=== PATIENT | female | born 1950 | race Hispanic/Latino ===

== ENCOUNTER 2019-02-18 14:35 | Emergency (ER) | payer MEDICARE, OTHER ==
[~2019-02-18] VITALS: Ht 147.3 cm; Wt 84.4 kg
[~2019-02-18 14:35] MED LIST: ACTOS PO; AMLODIPINE PO; ASPIR 8181 MG PO; ASPIRIN325 M2 PO; ETODOLAC400 MG PO; JANUVIA PO; LISINOPRIL-HCT1 EAC3 PO; NATEGLINIDE PO; NATEGLINIDE120 MG PO; PREVACID30 M2 PO; Z.0.ACTOS15 MG PO; Z.0.JANUVIA25 MG PO; Z.1.LANSOPRAZOLE30 M PO; Z.1.METFORMIN HCL100 PO; Z.2.LISINOPRIL-HCT1 PO
--- OUTSIDE RECORDS SUMMARY | 2019-02-18 14:39 | XMS REPORT | Summary of Care ---
Author Author [facility] Address Unknown Phone Unavailable Encounter [email or web address](FIN) [id number] Date(s): 02/17/18 - 03/18/18 Formerly [facility] Encounter Diagnosis Pain in right shoulder (Final) - Muscle weakness (generalized) (Final) - Stiffness of unspecified joint, not elsewhere classified (Final) - Discharge Disposition: Home or Self Care Attending Physician: Luis Daniel Bautista MD Vital Signs No data available for this section Problem List No data available for this section Allergies, Adverse Reactions, Alerts Substance Reaction Severity Status codeine Demerol Hydrochloride Carpuject Active Vicodin Active Medications No data available for this section Results No data available for this section Immunizations No data available for this section Procedures No data available for this section Social History No data available for this section Assessment and Plan No data available for this section
--- OUTSIDE RECORDS SUMMARY | 2019-02-18 14:39 | XMS REPORT | Summary of Care ---
Author Organization Unknown Address Unknown Phone Unavailable Encounter HQ [email or web address]([facility]) [id number] Date(s): 03/16/14 - 03/16/14 [facility] Outpatient Imaging - [address] [address]- [place] Discharge Disposition: Home Physician Attending: Anderson Valle MD Reason for Visit 836.0 - TEAR MED MENISC Problem List No data available for this section Allergies, Adverse Reactions, Alerts Substance Reaction Severity Status codeine Demerol Hydrochloride Carpuject Active Vicodin Active Medications No data available for this section Medications Administered During Your Visit No data available for this section Immunizations No data available for this section
--- OUTSIDE RECORDS SUMMARY | 2019-02-18 14:39 | XMS REPORT | Summary of Care ---
Author Author [facility] Address Unknown Phone Unavailable Encounter [email or web address]([facility]) [id number] Date(s): 02/17/18 - 03/18/18 [facility] Discharge Disposition: Home or Self Care Attending [...]
--- OUTSIDE RECORDS SUMMARY | 2019-02-18 14:39 | XMS REPORT | CCD ---
Author Author Auto Generated Organization [facility] Outpatient [facility] Address Unknown Phone Unavailable Care Team Providers Care Stock Shaper Name Role Phone Aleks Rodriguez CP Allergies, Adverse Reactions, Alerts Substance Reaction Status codeine Demerol Hydrochloride Carpuject Active Vicodin Active
--- OUTSIDE RECORDS SUMMARY | 2019-02-18 14:39 | XMS REPORT | Summary of Care ---
Author Author [facility] Address Unknown Phone Unavailable Encounter HQ [email or web address]([facility]) [id number] Date(s): 03/20/18 - 04/18/18 Formerly [facility] Discharge Disposition: Home or Self Care Attending [...]
--- OUTSIDE RECORDS SUMMARY | 2019-02-18 14:39 | XMS REPORT | Summary of Care ---
Author Author [facility] - [place] Organization [facility] [place] Address Unknown Phone Unavailable Encounter HQ Encntr_alias(FIN) [id number] Date(s): 07/07/16 - 07/07/16 [facility] Outpatient [facility] - [place] [address] [place] [address]- [phone] Discharge Disposition: Home or Self Care Attending Physician: Mendoza Rodriguez DO Vital Signs No data available for this [...]
--- OUTSIDE RECORDS SUMMARY | 2019-02-18 14:39 | XMS REPORT | Summary of Care ---
Author Author PETER BILLY M.D. Organization Unknown Address [facility] Phone Unavailable Care Team Providers Care Practice Office Associate Name Role Phone PETER BILLY M.D. Unavailable Unavailable Unavailable Unavailable Functional Status Name Dates Details Functional status health issues are not documented Status: Name Dates Details Cognitive status health issues are not documented Status: Problems Name Dates Details Right shoulder pain (719.41, M25.511) Status: Active Degenerative cervical spinal stenosis (723.0, M48.02) Status: Active Traumatic rotator cuff tear, right, initial encounter (840.4, S46.011A) Status: Active Medications Name Dates Details Meloxicam 7.5 MG Oral Tablet TAKE 1 TABLET DAILY WITH FOOD. Quantity: 30 MARIAJOSE M.D., PETER * Start : 22-Oct-2017 Active Diclofenac Sodium 1 % Transdermal Gel APPLY TO LOWER EXTREMITIES, 4 GM OF GEL TO AFFECTED AREA 4 TIMES DAILY. DO NOT APPLY MORE THAN 16 GM DAILY TO ANY ONE AFFECTED JOINT. * Quantity: 1 Refills: 2 MARIAJOSE M.D., PETER * Start : 22-Oct-2017 Active 100 GM Tube TraMADol HCl - 50 MG Oral Tablet TAKE 1 TABLET EVERY 4 TO 6 HOURS NEEDED FOR PAIN. * Quantity: 50 Refills: 2 MARIAJOSE M.D., PETER * Start : 17-Dec-2017 Active Promethazine HCl - 12.5 MG Oral Tablet TAKE 1 TABLET EVERY 4 TO 6 HOURS NEEDED FOR NAUSEA. * Quantity: 30 Refills: 0 MARIAJOSE M.D., PETER * Start : 17-Dec-2017 Active Cyclobenzaprine HCl - 10 MG Oral Tablet TAKE 1 TABLET 3 TIMES DAILY PRN muscle spasms * Quantity: 30 Refills: 0 MARIAJOSE M.D., PETER * Start : 17-Dec-2017 Active Allergies and Adverse Reactions Name Dates Details Allergy history not documented Status: Procedures Procedure Dates Details Procedures not documented Immunization Name Dates Details Immunizations not documented Social History Name Dates Details Unknown if ever smoked Vital Signs Date Test Result Details No Known Vitals to report Results Date Description Value Details Results not documented Plan of Care Name Dates Details Planned Observations Planned Goals not documented Planned Encounters Appointment; PETER BILLY M.D. On: 29-Apr-2018 13:45 Interventions Provided Plan* Patient Education/Instructions: * Patient Education Provided * Reassurance * Patient/Parent to call or return with any abnormal changes * NSAIDS and ICE application for continued pain and swelling. * Orders: * Physical Therapy * Medications: * Medications (prescribed or recommended at this visit): * - Opioid analgesics. * Follow Up: * Return to the clinic in 2 months or as needed. * X-rays to be completed at next visit: No follow up Xrays required Instructions Name Dates Details Instructions not documented Encounters Appointment; PETER BILLY M.D. Encounter Diagnosis: Problem not documented On: 22-Oct-2017 13:00 Appointment; PETER BILLY M.D. Encounter Diagnosis: Problem not documented On: 03-Dec-2017 11:15 Appointment; PETER BILLY M.D. Encounter Diagnosis: Problem not documented On: 18-Dec-2017 8:00 Appointment; PETER BILLY M.D. Encounter Diagnosis: Problem not documented On: 26-Dec-2017 10:45 Appointment; PETER BILLY M.D. Encounter Diagnosis: Problem not documented On: 26-Dec-2017 13:00 Appointment; PETER BILLY M.D. Encounter Diagnosis: Problem not documented On: 02-Jan-2018 10:15 Appointment; PETER BILLY M.D. Encounter Diagnosis: Problem not documented On: 30-Jan-2018 10:15 Appointment; PETER BILLY M.D. Encounter Diagnosis: Problem not documented On: 13-Mar-2018 10:15 Appointment; PETER BILLY M.D. Encounter Diagnosis: Problem not documented On: 18-Mar-2018 15:15
--- OUTSIDE RECORDS SUMMARY | 2019-02-18 14:39 | XMS REPORT | Continuity of Care Document ---
Author Author [facility] Interface Address Unknown Phone Unavailable Problems Problem Status Onset Date Classification Date Reported Comments Source RT SHOULDER RTC Active 02/12/2018 [facility] [place] Strain of other muscles, fascia and tendons at shoulder and upper arm level, right arm, initial encounter 12/05/2017 03/04/2018 [facility] [place] RT SHOULDER Active 11/30/2017 [facility] [place] Z12.39 - ENCOUNTER FOR OTH SCREENING FO Active 11/15/2017 [facility] [place] M25.511 - PAIN IN RIGHT SHOULDER Active 11/01/2017 [facility] [place] Z12.31 - ENCNTR SCREEN MAMMOGRAM FOR MA Active 06/12/2017 [facility] [place] V76.12 - SCREEN MAMMOGRA Active 03/16/2014 [facility] [place] Spinal stenosis, cervical region 03/04/2018 [facility] [place] Final: Encounter for screening mammogram for malignant neoplasm of breast 11/18/2017 [facility] [place] Pain in right shoulder 03/27/2018 [facility] [place] Muscle weakness 03/27/2018 [facility] [place] Stiffness of unspecified joint, not elsewhere classified 03/27/2018 [facility] [place] Medications Medication Details Route Status Patient Instructions Ordering Provider Order Date Source Allergies, Adverse Reactions, Alerts Substance Category Reaction Severity Reaction type Status Date Reported Comments Source codeine Assertion Demerol Hydrochloride Carpuject Drug allergy Active [facility] [place] Vicodin Assertion Drug allergy Active [facility] [place] Immunizations Immunization Date Given Site Status Last Updated Comments Source Results Order Name Results Value Reference Range Date Interpretation Comments Source Breast Mammo Scrn MYNOR incl CAD MA Breast Mammo Scrn MYNOR incl CAD MA BILATERAL DIGITAL SCREENING MAMMOGRAM WITH CAD: 11/17/2018 CLINICAL: Routine/Screening. Current study was evaluated with a Computer Aided Detection (CAD) system. COMPARISON:Comparison is made to exams dated: 11/15/2017 mammogram, 07/07/2016 mammogram, 11/12/2014 mammogram, and 04/30/2013 mammogram - [facility]. TECHNIQUE: Mammographic views were obtained using digital acquisition. Current study was also evaluated with a Computer Aided Detection (CAD) system. FINDINGS: The tissue of both breasts is almost entirely fat. No significant masses, calcifications, or other findings are seen in either breast. There has been no significant interval change. IMPRESSION: NEGATIVE RECOMMENDATION:There is no mammographic evidence of malignancy. A 1 year screening mammogram is recommended.(11/18/2019) This exam was interpreted at [id number] at [facility] [place]. Professional services are provided by the [facility]. Elva Jurado M.D. sm/penrad:11/19/2018 13:27:45 Skiing Instructor(s): RT Rupinder(R)(M), [facility] letter sent: BI-RADS 1/2 Mammogram BI-RADS: 1 Negative 11/17/2018 - - Read by: Elva Jurado MD Dictated Date/time: 11/19/18 13:27 Electronically Signed by: Elva Jurado MD 11/19/18 13:27 FINAL REPORT [facility] Bone Density DXA [employer] MA Bone Density DXA [employer] MA BONE DENSITY ASSESSMENT: 04/16/2018 CLINICAL DATA: Post menopausal. Age-Related Osteoporosis Without Current Pathological Fracture/M81.0 RISK FACTORS: History of previous fracture. FINDINGS: Bone density evaluation was performed 04/16/2018 on the left distal radius using a Hologic unit. The BMD average for the exam is 0.578 g/cm2. The T-score is - 1.90 and the Z-score is 0.10. This matches the World Health Organization's criteria for osteopenia and places the patient at a medium risk for fracture. An additional bone density evaluation was performed 04/16/2018 on the right femur neck using a Hologic unit. The BMD average for the exam is 0.688 g/cm2. The T-score is -1.50 and the Z-score is 0.10. This matches the World Health Organization's criteria for osteopenia and places the patient at a medium risk for fracture. An additional bone density evaluation was performed 04/16/2018 on the left femur neck using a Hologic unit. The BMD average for the exam is 0.696 g/cm2. The T- score is -1.40 and the Z-score is 0.20. This matches the World Health Organization's criteria for osteopenia and places the patient at a medium risk for fracture. An additional bone density evaluation was performed 04/16/2018 on the right hip using a Hologic unit. The BMD average for the exam is 0.794 g/cm2. The T-score is -1.20 and the Z-score is 0.20. This matches the World Health Organization's criteria for osteopenia and places the patient at a medium risk for fracture. An additional bone density evaluation was performed 04/16/2018 on the left hip using a Hologic unit. The BMD average for the exam is 0.833 g/cm2. The T-score is -0.90 and the Z-score is 0.50. This matches the World Health Organization's criteria for normal bone density and places the patient within normal limits of fracture risk. IMPRESSION: OSTEOPENIA Patient is at medium risk for fracture. This exam was interpreted at [id number] for BL[facility], 15. Kirk Davis M.D. rsl/latosha:04/17/2018 08:34:36 Skiing Instructor(s): Zena PEREZ)(Brittany), [facility] 04/16/2018 - - Read by: Kirk Davis MD Dictated Date/time: 04/17/18 08:34 Electronically Signed by: Kirk Davis MD 04/17/18 08:34 FINAL REPORT [facility] Spine cervical wo contrast MRI Spine cervical wo contrast MRI EXAM: Spine cervical wo contrast MRI DATE: 11/26/2017 12:11 PM [employer] . ORDERING PHYSICIAN: Luis Daniel Bautista MD CLINICAL INDICATION: M25.511 Pain in right shoulder - M25.511 Pain in right shoulder; TECHNIQUE: Multiplanar, multisequence MRI cervical spine without IV contrast COMPARISON: Unavailable FINDINGS: VISUALIZED INTRACRANIAL CONTENTS: Unremarkable. CRANIOCERVICAL JUNCTION: Tonsils normal in position CORD: No definite cord signal abnormality. No definite dural based lesion. VERTEBRAE: The vertebrae are normal in height. The lordosis is straightened. No focal suspicious bone marrow signal abnormality. PARASPINAL SOFT TISSUES: No edema or masses DISC LEVELS, SPINAL CANAL, NEURAL FORAMINA: The cervical pedicles are short. Craniocervical junction: No stenosis C1-C2: No subluxation, ligamentous pannus formation, or stenosis C2-C3: Intervertebral disc height and signal are maintained. The left facets are enlarged. Central canal measures 11 mm. Neural foramina are patent. C3-C4: Intervertebral disc height and signal are maintained. Posterior elements are normal. There is no stenosis. C4-C5: Intervertebral disc height is dehydrated without height loss or annular bulge. Posterior elements are normal. There is no stenosis. C5-C6: Intervertebral disc is dehydrated without height loss or annular bulge. Posterior elements are normal. There is no stenosis. C6-C7: Loss in disc height and signal with circumferential disc osteophyte complex. There is mild facet hypertrophy. Central canal measures 8 mm with flattening ventral cord contour. There is mild narrowing of the neural foramina. C7-T1: Intervertebral disc height and signal are maintained. Posterior elements are normal. There is no stenosis. IMPRESSION: 1. Mild C6-C7 central canal stenosis and ventral cord flattening without myelopathy. There is mild narrowing of the neural foramina. 2. Please see additional comments above 11/26/2017 - - Read by: Alok Ramirez MD Dictated Date/time: 11/26/17 13:47 Electronically Signed by: Alok Ramirez MD 11/26/17 14:06 FINAL REPORT [facility] Inj Arthrogram Shoulder Unilat DX Inj Arthrogram Shoulder Unilat DX PATIENT NAME: KARINA MYERS : 1950; Age: 67 years y/o Female MR: [id number] STUDY: Inj Arthrogram Shoulder right DX 11/26/2017 11:40 AM [employer] ORDERING PHYSICIAN: Luis Daniel Bautista MD CLINICAL INDICATION: - right shoulder pain; TECHNIQUE: Consent: A written, informed consent was obtained from the patient prior to the procedure."Time Out" performed immediately prior to starting the procedure. Patient's first and last name, procedure to be performed, and location of procedure site, including laterality were reviewed. Procedure site was marked prior to "Time Out". All members of the invasive team concurred with the information before the start of the procedure. The skin was prepped and draped in the usual fashion under aseptic precautions. Dilute 1% lidocaine was used for local anesthesia. Under fluoroscopic guidance a 22 gauge long spinal needle was used to access the shoulder joint. Approximately 10 mL of a mixture of dilute gadolinium with iodinated contrast was injected into the glenohumeral joint under direct visualization. A normal shoulder joint was outlined. The patient was transferred to the MRI suite. 7 seconds of total fluoroscopy time was utilized. Images obtained: No exposures, one screen capture No immediate complications. IMPRESSION: Technically successful right shoulder arthrogram. 11/26/2017 - - Read by: Alok Ramirez MD Dictated Date/time: 11/26/17 16:31 Electronically Signed by: Alok Ramirez MD 11/26/17 16:32 FINAL REPORT [facility] Shoulder w contrast MRI Shoulder w contrast MRI EXAMINATION: MR right shoulder with contrast HISTORY: M25.511 Pain in right shoulder - M25.511 Pain in right shoulder; AGE: 67 years GENDER: Female COMPARISON: Right shoulder arthrogram 11/26/2017 TECHNIQUE: Multiplanar, multisequence magnetic resonance imaging of the right shoulder is performed with a local coil following the intra-articular administration of contrast which is dictated separately. Transverse, oblique coronal, and oblique sagittal images are obtained. FINDINGS: Biceps: The long head of the biceps tendon demonstrates mild interarticular tendinosis.. There is no significant tenosynovitis of the long head of the biceps tendon. Labrum: There is no evidence of labral pathology. No paralabral cyst formation. Rotator cuff tendons: There is a full-thickness 12 mm tear of the posterior footplate of the supraspinatus tendon with underlying severe tendinosis. There is underlying moderate grade, 50% thickness undersurface tearing of the critical zone of the supraspinatus tendon. No evidence of myotendinous junction retraction or fatty atrophy of the supraspinatus muscle. Mild tendinosis of the anterior infraspinatus tendon without tear. The subscapularis and teres minor tendons are intact and unremarkable. Muscles: There is normal signal intensity and muscle bulk of the rotator cuff musculature. Acromio-osseous outlet: There is a type 2 acromion without a subacromial spur. The coracoacromial and coracoclavicular ligaments are intact. Mild osteoarthrosis of the acromioclavicular joint. Bone: There are no acute fractures. There are no suspicious bone marrow replacing lesions. Cartilage: There is no focal glenohumeral chondral defect. Soft tissue: There is free extension of intra-articular contrast into the subacromial-subdeltoid bursa. The glenohumeral capsule is intact. The inferior glenohumeral ligament is unremarkable..The axilla and visualized portions of the hemithorax are unremarkable. IMPRESSION: 1. 12 mm full-thickness tear of the posterior footplate of the supraspinatus tendon. There is concomitant underlying moderate grade, 50% thickness, undersurface tearing of the critical zone of the entirety of the supraspinatus tendon. No myotendinous tension retraction or atrophy of the supraspinatus muscle. 2. Mild tendinosis of the anterior infraspinatus tendon without tear. 3. Mild interarticular tendinosis of the long head of the biceps tendon without tear. 11/26/2017 - - Read by: Gregory Toussaint MD Dictated Date/time: 11/26/17 14:00 Electronically Signed by: Gregory Toussaint MD 11/26/17 14:23 FINAL REPORT [facility] Breast Mammo Scrn MYNOR incl CAD PR Breast Mammo Scrn MYNOR incl CAD PR BILATERAL DIGITAL SCREENING MAMMOGRAM WITH CAD: 11/15/2017 CLINICAL: Routine/Screening. Current study was evaluated with a Computer Aided Detection (CAD) system. COMPARISON:Comparison is made to exams dated: 07/07/2016 mammogram, 11/12/2014 mammogram, and 04/30/2013 mammogram - [facility]. TECHNIQUE: Mammographic views were obtained using digital acquisition. Current study was also evaluated with a Computer Aided Detection (CAD) system. FINDINGS: The tissue of both breasts is almost entirely fat. No significant masses, calcifications, or other findings are seen in either breast. There has been no significant interval change. IMPRESSION: NEGATIVE RECOMMENDATION:There is no mammographic evidence of malignancy. A 1 year screening mammogram is recommended.(11/16/2018) This exam was interpreted at [id number] at [facility]. Professional services are provided by the [facility]. Shira santiago/penrad:11/15/2017 11:41:33 Skiing Instructor(s): Evelyn Robison RT(R)(M), [facility] letter sent: BI-RADS 1/2 Mammogram BI-RADS: 1 Negative 11/15/2017 - - Read by: Shira Hoff MD Dictated Date/time: 11/15/17 11:41 Electronically Signed by: Shira Hoff MD 11/15/17 11:41 FINAL REPORT [facility] [place] Digital Mammo Screening Mynor MA Digital Mammo Screening M[facility] MA - DIGITAL MAMMO SCREENING MYNOR MA BILATERAL DIGITAL SCREENING MAMMOGRAM WITH CAD: 07/07/2016 CLINICAL: Screening Tanya Karina V. 1950. Current study was evaluated with a Computer Aided Detection (CAD) system. Comparison is made to exams dated: 11/12/2014 mammogram and 04/30/2013 mammogram - [facility]. There are scattered fibroglandular densities in both breasts. There are benign appearing calcifications in both breasts. No significant masses, calcifications, or other findings are seen in either breast. There has been no significant interval change. IMPRESSION: BENIGN There is no mammographic evidence of malignancy. A 1 year screening mammogram is recommended. Marv Delgado M.D. /penrad:07/09/2016 16:55:41 Skiing Instructor: Joanna Lopez RT(R)(M), [facility] This exam was dictated and interpreted by [id number] at [facility]. letter sent: Normal exam Mammogram BI-RADS: 2 Benign 07/07/2016 - - Read by: Marv Delgado MD Dictated Date/time: 07/09/16 16:55 Electronically Signed by: Marv Delgado MD 07/09/16 16:55 FINAL REPORT [facility] [place] Digital Mammo Screening M[facility] MA Digital Mammo Screening [place] MA - DIGITAL MAMMO SCREENING MYNOR MA BILATERAL DIGITAL SCREENING MAMMOGRAM WITH CAD: 11/12/2014 CLINICAL: Routine Screening. Current study was evaluated with a Computer Aided Detection (CAD) system. Comparison is made to exam dated: 04/30/2013 mammogram - [facility]. The tissue of both breasts is almost entirely fat. No significant masses, calcifications, or other findings are seen in either breast. There has been no significant interval change. IMPRESSION: NEGATIVE There is no mammographic evidence of malignancy. A screening mammogram in one year is recommended. Dr. Paige Reinoso D.O. ht/penrad:11/12/2014 15:27:52 Skiing Instructor: Nathalie FREEMAN(R)(M), [facility] This exam was dictated and interpreted by [id number] for [facility]. letter sent: Normal exam Mammogram BI-RADS: 1 Negative 11/12/2014 - - Read by: Paige Reinoso DO Dictated Date/time: 11/12/14 15:27 Electronically Signed by: Paige Reinoso DO 11/12/14 15:27 FINAL REPORT [facility] [place] Knee wo contrast MRI Knee wo contrast MRI EXAM: MRI of the left knee without contrast. HISTORY: Left knee pain, medial meniscus tear. COMPARISON: None. TECHNIQUE: Multiplanar, multisequence MRI of the left knee without contrast. FINDINGS: Intercondylar notch: There is severe mucoid degeneration of the ACL. There are small periligamentous ganglion cysts anterior to the distal ACL as well as early intraosseous cystic changes in the anterior tibial spine. There is no tear the ACL or PCL. Collateral ligaments: The medial and lateral collateral ligaments are intact. Medial compartment: There is prominent attenuation of the posterior horn and body of the medial meniscus secondary to prior partial medial meniscectomy. There is a recurrent or residual flap tear of the posterior horn to posterior body remnant of the medial meniscus with a small meniscal flap displaced into the medial meniscofemoral recess. There are large areas of full-thickness cartilage loss along the central and posterior weight-bearing portions of the medial femoral condyle and medial tibial plateau without subchondral marrow edema. Lateral compartment: There is mild free edge degeneration or fraying of the body of the lateral meniscus. There is no lateral meniscal tear. There is no chondral defect or subchondral marrow edema in the lateral compartment. The posteromedial and posterolateral corner structures are intact. Patellofemoral compartment: There is slight distal patellar tendinosis. The patellar and quadriceps tendons are intact. There is no chondral defect or subchondral marrow edema in the patellofemoral compartment. Other findings: There is a small joint effusion. There is a small popliteal cyst posteromedially. No osteochondral body is seen. IMPRESSION: 1. Prominent attenuation of the posterior horn and body of the medial meniscus secondary to prior partial medial meniscectomy. There is a recurrent or residual flap tear of the posterior horn to posterior body remnant of the medial meniscus with a small meniscal flap displaced into the medial meniscofemoral recess. 2. Severe medial compartment osteoarthritis characterized by large areas of full- thickness cartilage loss along the medial femoral condyle and medial tibial plateau without subchondral marrow edema. 3. Severe mucoid degeneration of the ACL. There are small periligamentous ganglion cysts anterior to the distal ACL as well as early intraosseous cystic changes in the anterior tibial spine. No ligament tear. 4. Mild free edge degeneration or fraying of the body of the lateral meniscus without a tear. 5. Small joint effusion and small popliteal cyst. 03/16/2014 - - Read by: Ruben Garcia MD Dictated Date/time: 03/16/14 10:33 Electronically Signed by: Ruben Garcia MD 03/16/14 11:21 FINAL REPORT [facility] Shoulder wo contrast MRI Shoulder wo contrast MRI EXAMINATION: MRI of the left shoulder without contrast. HISTORY: Pain. COMPARISON: None. TECHNIQUE: Multiplanar, multisequence magnetic resonance imaging of the left shoulder was performed without administration of intravenous gadolinium contrast utilizing a 1.5 Sonali MRI. FINDINGS: Glenohumeral joint: Degeneration of the superior glenoid labrum is seen. No acute bony fracture or joint dislocation is present. Osseous acromion complex: The acromion is type II in morphology and shows horizontal orientation without significant narrowing of the supraspinatus outlet. No os acromiale is seen. Moderate AC joint osteoarthrosis is seen with moderate chondral thinning, small joint effusion, and minimal periarticular cystic change. Rotator cuff tendons: Moderate to severe supraspinatous tendinosis is seen. There is a superimposed full-thickness incomplete tear of the leading-edge fibers of the distal supraspinatus tendon at the footprint measuring 7 mm in AP dimension with 4 mm tendon retraction. Mild to moderate subscapularis and infraspinatus tendinosis is also seen. Biceps tendon: Intact and without subluxation or dislocation. Soft tissues: Scant fluid in the subacromial subdeltoid bursa is seen. IMPRESSION: 1. Moderate to severe supraspinatus tendinosis with full-thickness incomplete tear of the leading-edge fibers of the distal tendon at the footprint measuring 7 mm AP dimension with 4 mm proximal retraction. 2. Mild to moderate subscapularis and infraspinatus tendinosis. 3. Moderate AC joint osteoarthrosis. 04/30/2013 - - Read by: Slick Gomez Dictated Date/time: 04/30/13 18:45 Electronically Signed by: Slick Gomez MD 04/30/13 18:52 FINAL REPORT [facility] Digital Mammo Screening [facility] MA Digital Mammo Screening [facility] MA - DIGITAL MAMMO SCREENING [place] MA BILATERAL DIGITAL SCREENING MAMMOGRAM WITH CAD: 04/30/2013 CLINICAL: Routine. Current study was evaluated with a Computer Aided Detection (CAD) system. No prior exams were available for comparison. The tissue of both breasts is predominantly fatty. Patient's prior outside mammograms were requested but none received. There are benign vascular calcifications in the left breast. There are mole markers on both breasts. No significant masses, calcifications, or other findings are seen in either breast. IMPRESSION: BENIGN There is no mammographic evidence of malignancy. A screening mammogram in one year is recommended. Nely thompson/latosha:05/08/2013 13:32:19 Skiing Instructor: Letha FREEMAN(Samantha)(Brittany), [facility] letter sent: Normal exam Mammogram BI-RADS: 2 Benign 04/30/2013 - - Read by: Nely Diego Dictated Date/time: 05/08/13 13:32 Electronically Signed by: Nely Diego MD 05/08/13 13:32 FINAL REPORT [facility] Vital Signs Vital Sign Value Date Comments Source Encounters Location Location Details Encounter Type Encounter Number Reason For Visit Attending Provider ADM Date DC Date Status Source [facility] [place] [facility] [id number] Anderson Valle 03/16/2014 03/17/2014 [facility] [place] [facility] [id number] Mendoza Rodriguez 07/07/2016 07/08/2016 BLANQUITA Cobian [facility] [place] [facility] [id number] Aleks Rodriguez 11/15/2017 11/16/2017 [facility] [place] [facility] [place] [facility] [id number] Luis Daniel Bautista 11/26/2017 11/27/2017 [facility] [place] [facility] [place] [facility] [id number] Luis Daniel Bautista 02/17/2018 03/19/2018 [facility] [place] [facility] [place] [id number] Luis Daniel Bautista 03/20/2018 04/19/2018 [facility] [place] [facility] [place] [facility] [id number] Aleks Rodriguez 04/16/2018 04/17/2018 [facility] [place] Procedures Procedure Code Date Perfomer Comments Source
--- OUTSIDE RECORDS SUMMARY | 2019-02-18 14:39 | XMS REPORT | Summary of Care ---
Author Author [facility] [place] Organization [facility] [place] Address Unknown Phone Unavailable Encounter [facility] Encntr_alivelasquez(FIN) [id number] Date(s): 04/16/18 - 04/16/18 [facility] [place] [address] [place] [phone] Discharge Disposition: Home or Self Care Attending Physician: Aelks Rodriguez DO Vital Signs No data available [...]
--- OUTSIDE RECORDS SUMMARY | 2019-02-18 14:39 | XMS REPORT | Summary of Care ---
Author Author [facility] [place] Organization [facility] [place] Address Unknown Phone Unavailable Encounter HQ Encntr_mickey(FIN) [id number] Date(s): 11/15/17 - 11/15/17 [facility] [place] [address] [place] [phone] Final: Encounter for screening mammogram for malignant neoplasm of breast Discharge Disposition: Home or Self Care Attending Physician: Aleks Rodriguez DO Vital Signs No data available [...]
--- OUTSIDE RECORDS SUMMARY | 2019-02-18 14:39 | XMS REPORT | Summary of Care ---
Author Author [facility] [place] Organization [facility] [place] Address Unknown Phone Unavailable Encounter HQ Abhi_mickey(FIN) [id number] Date(s): 11/26/17 - 11/26/17 [facility] [place] [address] [place] [phone] Encounter Diagnosis Strain of other muscles, fascia and tendons at shoulder and upper arm level, rig ht arm, initial encounter (Final) - 12/04/17 Spinal stenosis, cervical region (Final) - Discharge Disposition: Home or Self [...]
--- OUTSIDE RECORDS SUMMARY | 2019-02-18 14:39 | XMS REPORT | Summary of Care ---
Author Author [facility] [place] Organization [facility] [place] Address Unknown Phone Unavailable Encounter HQ [facility]_alivelasquez(FIN) [id number] Date(s): 11/26/17 - 11/26/17 [facility] [place] [address] [place] [phone] Discharge Disposition: Home or Self Care Attending [...]
[2019-02-18] MEDS ORDERED: CLONIDINE HCL 0.1 MG TAB PO STA (20:11)
[2019-02-18 21:05] VITALS: BP 166/94
== END 2019-02-18 21:11 | disposition home or self-care (01) ==
LOC: ER 14:35
DX: I10 Essential (primary) hypertension (principal); E11.9 Type 2 diabetes mellitus without complications; M81.0 Age-related osteoporosis without current pathological fracture; E66.9 Obesity, unspecified
CPT/HCPCS: 99282

== ENCOUNTER 2019-02-26 18:56 | Emergency (ER) | payer MEDICARE ==
[~2019-02-26] VITALS: Ht 147.3 cm; Wt 85.3 kg
[2019-02-26] MEDS ORDERED: PANTOPRAZOLE SO40 MG PO (19:52)
[2019-02-26] MEDS ORDERED: PRANDIN1 MG PO (19:52)
[2019-02-26] MEDS ORDERED: LISINOPRIL20 MG PO (19:52)
[2019-02-26] MEDS ORDERED: TRAZODONE HCL150 MG PO (19:52)
[2019-02-26] MEDS ORDERED: MELOXICAM7.5 MG PO (19:52)
[2019-02-26] MEDS ORDERED: BYSTOLIC10 MG PO (19:52)
[2019-02-26] MEDS ORDERED: invokana PO (19:52)
[2019-02-26] MEDS ORDERED: NORVASC5 MG PO (19:52)
[2019-02-26] MEDS ORDERED: LEVOCETIRIZINE D5 MG PO (19:52)
[2019-02-26] MEDS ORDERED: BUSPIRONE HCL5 MG PO (19:52)
[2019-02-26] MEDS ORDERED: AMLODIPINE BESYLATE 10 MG TAB PO ONE (20:15)
--- NOTE | 2019-02-26 20:27 | Diagnostic Imaging Report ---
EXAMINATION: CHEST 2 VIEWS INDICATION: Hypertension ^HTN ^[id number] ^2007 ^Y COMPARISON: 10/30/2012 FINDINGS: TUBES and LINES: None. LUNGS: Lungs are well inflated. Lungs are clear. There is no evidence of pneumonia or pulmonary edema. PLEURA: No pleural effusion or pneumothorax. HEART AND MEDIASTINUM: The cardiomediastinal silhouette is unremarkable. BONES AND SOFT TISSUES: No acute osseous lesion. Soft tissues are unremarkable. UPPER ABDOMEN: No free air under the diaphragm. IMPRESSION: No acute thoracic abnormality. Signed by: Dr. Zac Santos M.D. on 02/26/2019 8:24 PM
--- NOTE | 2019-02-26 20:51 | Diagnostic Imaging Report ---
EXAMINATION: Head CT without contrast. HISTORY:Headache and high blood pressure. COMPARISON:None. TECHNIQUE: Multidetector axial images were obtained from the foramen magnum to the vertex without contrast. The images were reconstructed using brain and bone algorithms. Thin section brain images were reformatted into coronal and sagittal planes. Dose modulation, iterative reconstruction, and/or weight based adjustment of the mA/kV was utilized to reduce the radiation dose to as low as reasonably achievable. Intravenous contrast: None IMAGE QUALITY: Acceptable. FINDINGS: Skull/scalp: Incidental 1.8 cm occipital scalp lipoma. No lytic or blastic lesion. No calvarial postsurgical changes. Parenchyma: Nonspecific bilateral (left more than right frontoparietal patchy white matter hypodensity are likely related to small vessel ischemic changes. Focal hypodensity in right putamen represents age indeterminate lacunar infarct. No acute hemorrhage, mass or acute major vascular territorial infarct. Arteries: No density suggestive of thrombosis. Atherosclerotic calcification in bilateral carotid siphon. Dural sinuses: No abnormal density suggestive of thrombosis. Ventricles: No hydrocephalus or displacement. Extra-axial spaces: No abnormal density. Brain volume: Generalized age-related cerebral volume loss. Craniocervical junction: No mass, Chiari malformation, or basilar invagination. Sella: No mass. Paranasal/mastoid sinuses: Imaged portions unremarkable. IMPRESSION: 1. No acute intracranial abnormality, particularly no acute hemorrhage, mass or acute major vascular territorial infarct. 2. 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 3. Mild supratentorial white matter microvascular ischemic changes. 4. Generalized age-related cerebral volume loss. Signed by: Dr. Yudith Yusuf M.D. on 02/26/2019 8:47 PM
[2019-02-26] MEDS ORDERED: ACETAMINOPHEN 325 MG TAB PO ONE (22:00)
[2019-02-26 22:36] VITALS: BP 161/77
== END 2019-02-26 22:42 | disposition home or self-care (01) ==
LOC: ER 18:56
DX: R51 Headache (principal); I10 Essential (primary) hypertension; E11.9 Type 2 diabetes mellitus without complications; M81.0 Age-related osteoporosis without current pathological fracture
CPT/HCPCS: 70450; 71046; 93005; 99284

== ENCOUNTER → 2020-10-07 | Day surgery (SDC) | payer MEDICARE, OTHER ==
[2020-10-04 10:49] LABS: BASOPHILS # (AUTO) 0.1 (0.0-0.1); BASOPHILS % 0.6 % (0.0-1.0); EOSINOPHILS # (AUTO) 0.1 (0.0-0.4); EOSINOPHILS % 0.8 % (0.0-6.0); HEMATOCRIT 39.3 % (34.2-44.1); HEMOGLOBIN 12.9 g/dL (12.0-16.0); LYMPHOCYTES # (AUTO) 1.5 (1.0-3.2); MEAN CORPUSCULAR HEMOGLOBIN 28.2 pg (28-32); MEAN CORPUSCULAR HGB CONC 32.8 g/dL (31-35); MONOCYTES # (AUTO) 0.6 (0.2-0.8); MONOCYTES % 7.1 % (4.4-11.3); NEUTROPHILS % 72.9 % (38.7-80.0); PLATELET COUNT 238 x10e3/uL (140-360); RED BLOOD COUNT 4.57 x10e6/uL (3.6-5.1); RED CELL DISTRIBUTION WIDTH 13.8 % (11.7-14.4)
[~2020-10-07] MED LIST changes: +BUSPIRONE HCL5 MG PO; +BYSTOLIC10 MG PO; +HYDROCHLOROTHIA25 MG PO; +HYOSCYAMINE 0.125 MG TAB ONE; +IBANDRONATE SO150 MG PO; +KETAMINE HCL INJ 50 MG/ML 10 ML VIAL ONE; +LEVOCETIRIZINE D5 MG PO; +LIDOCAINE HCL 2% LOCAL INJ 5 ML SDV VIAL INJ ONE; +LISINOPRIL20 MG PO; +LOSARTAN POTASS25 MG PO; +MELOXICAM7.5 MG PO; +MIDAZOLAM HCL 2 MG/2 ML VIAL ONE; +NORVASC5 MG PO; +PANTOPRAZOLE SO40 MG PO; +PIROXICAM20 MG PO; +PRANDIN1 MG PO; +PROPOFOL IV EMULSION 10 MG/ML 20 ML VIAL ONE; +TRAZODONE HCL150 MG PO; +invokana PO
[2020-10-07 10:20] VITALS: BP 161/74
--- NOTE | 2020-10-07 11:07 | Operative Report ---
DATE OF PROCEDURE: 10/07/2020 SURGEON: Gregor Pacheco MD PROCEDURES: EGD with polypectomy and biopsies, and colonoscopy with polypectomy. INDICATIONS FOR EGD: Acid reflux. INDICATIONS FOR COLONOSCOPY: Surveillance colonoscopy, personal history of colon polyps. Sister with colon cancer. MEDICATIONS: The patient was done under MAC, please see anesthesiologist's note. PROCEDURE IN DETAIL: With the patient in left lateral decubitus position, a flexible fiberoptic Olympus gastroscope was introduced into the esophagus under direct visualization without any difficulty. There was some patchy erythema noted in distal esophagus. The scope was then advanced with ease into the stomach, traversing a small sliding hiatal hernia. Mucosa overlying the antrum and the body revealed some patchy erythema and low-grade edema, and biopsies were obtained and sent to stain for H. pylori. Multiple polyps, hyperplastic appearing were noted in the body, some were partially excised with the cold biopsy forceps. The pylorus was of normal contour and shape, it was intubated with ease and the scope was advanced all the way to the second portion of the duodenum. The scope was then withdrawn slowly, mucosa overlying the proximal second portion and duodenal bulb grossly appeared to be within normal limits. The scope was then withdrawn back into the stomach and retroflexed, and mucosa overlying the fundus and cardia appeared to be within normal limits. The scope was then straightened out, it was subsequently withdrawn. The patient tolerated the procedure well. IMPRESSION: 1. Distal esophagitis, mild. 2. Small sliding hiatal hernia. 3. Gastritis, biopsied, biopsies sent to stain for H. pylori. 4. Gastric polyps, some partially excised with the cold biopsy forceps. PLAN: 1. Follow up histology. 2. Increase Protonix to 40 mg one p.o. a.c. b.i.d. DESCRIPTION OF PROCEDURE: The patient was then turned around after adequate lubrication of the anal canal, a flexible fiberoptic Olympus colonoscope was inserted into the rectum with ease and advanced all the way to the cecum. Mucosa overlying the cecum appeared to be within normal limits. A minute polyp was removed per cold biopsy forceps from the proximal ascending colon. An approximately 5 mm sessile polypoid lesion was removed per cold snare polypectomy also from the ascending colon. One polyp was hot biopsied from the transverse colon. The descending and sigmoid grossly appeared to be within normal limits. One polyp was hot biopsied from the rectum. The scope was then retroflexed into the distal rectum and small internal hemorrhoids were noted, none of which was actively bleeding. The scope was then straightened out, it was subsequently withdrawn. The patient tolerated the procedure well. IMPRESSION: 1. Ascending colon polyps x2, one cold snared, one cold biopsied. 2. Transverse colon polyp, hot biopsied. 3. Rectal polyp, hot biopsied. PLAN: 1. Followup histology. 2. Initiate high-fiber, low-fat diet. 3. Initiate high-fiber supplement. 4. The patient might benefit from a followup colonoscopy in 3 years. Gregor Pacheco MD [facility] [place] /[id number] cc: Aleks Rodriguez DO
== END | disposition home or self-care (01) ==
LOC: OR 06:18
PROVIDERS: ATTEND Internal Medicine Gastroenterology
DX: Z12.11 Encounter for screening for malignant neoplasm of colon (principal); D12.2 Benign neoplasm of ascending colon; D12.3 Benign neoplasm of transverse colon; K62.1 Rectal polyp; K31.7 Polyp of stomach and duodenum; K29.70 Gastritis, unspecified, without bleeding; K21.00 Gastro-esophageal reflux disease with esophagitis, without bleeding; K44.9 Diaphragmatic hernia without obstruction or gangrene; K64.8 Other hemorrhoids; R19.05 Periumbilic swelling, mass or lump; I10 Essential (primary) hypertension; E11.9 Type 2 diabetes mellitus without complications; M81.0 Age-related osteoporosis without current pathological fracture; M19.90 Unspecified osteoarthritis, unspecified site; Z88.6 Allergy status to analgesic agent; Z01.810 Encounter for preprocedural cardiovascular examination; Z01.812 Encounter for preprocedural laboratory examination; Z20.828 Contact with and (suspected) exposure to other viral communicable diseases; Z79.4 Long term (current) use of insulin; Z80.0 Family history of malignant neoplasm of digestive organs
CPT/HCPCS: 36415 ×2; 43239; 45380; 45384; 45385; 82948; 85025; 93005; J2001; J2250; J2704; U0002; 45378

== ENCOUNTER → 2020-10-12 | Outpatient (CLI) | payer MEDICARE, OTHER ==
[~2020-10-12] MED LIST changes: +DIATRIZOATE MEGL/DIATRIZOA SOD 30 ML BTL PO ONE; -HYOSCYAMINE 0.125 MG TAB ONE; +IOPAMIDOL 370 MG/ML 200 ML INFUS..BTL INJ ONE; -KETAMINE HCL INJ 50 MG/ML 10 ML VIAL ONE; -LIDOCAINE HCL 2% LOCAL INJ 5 ML SDV VIAL INJ ONE; -MIDAZOLAM HCL 2 MG/2 ML VIAL ONE; -PROPOFOL IV EMULSION 10 MG/ML 20 ML VIAL ONE; +SODIUM CHLORIDE 0.9% 250ML 250 ML ONE; +SODIUM CHLORIDE 0.9% 50ML 50 ML ONE
[2020-10-12 13:18] LABS: CREATININE, SERUM 0.94 mg/dL (0.57-1.11)
== END ==
LOC: CT 12:24
PROVIDERS: ATTEND Internal Medicine Gastroenterology
DX: R10.84 Generalized abdominal pain (principal)
CPT/HCPCS: 36415; 74177; 82565; 84520; 96360; J7050; Q9967

== ENCOUNTER → 2021-07-11 | Outpatient (CLI) | payer MEDICARE, OTHER ==
[~2021-07-11] MED LIST changes: -DIATRIZOATE MEGL/DIATRIZOA SOD 30 ML BTL PO ONE; -IOPAMIDOL 370 MG/ML 200 ML INFUS..BTL INJ ONE; -SODIUM CHLORIDE 0.9% 250ML 250 ML ONE; -SODIUM CHLORIDE 0.9% 50ML 50 ML ONE
== END ==
LOC: CT 11:16
PROVIDERS: ATTEND Family Medicine
DX: R91.8 Other nonspecific abnormal finding of lung field (principal); R91.1 Solitary pulmonary nodule
CPT/HCPCS: 71250

== ENCOUNTER → 2021-08-23 | Outpatient (CLI) | payer MEDICARE, OTHER | LOC: MAMMO 10:35 | PROVIDERS: ATTEND Family Medicine | DX: Z12.31 Encounter for screening mammogram for malignant neoplasm of breast (principal); M81.0 Age-related osteoporosis without current pathological fracture | CPT/HCPCS: 77067; 77080 ==

== ENCOUNTER 2022-07-28 09:21 | Emergency (ER) | payer MEDICARE, OTHER ==
[~2022-07-28] VITALS: Ht 147.3 cm; Wt 79.4 kg
== END 2022-07-28 11:39 | disposition home or self-care (01) ==
LOC: FSED 09:33
DX: M54.6 Pain in thoracic spine (principal); M54.50 Low back pain, unspecified; W01.198A Fall on same level from slipping, tripping and stumbling with subsequent striking against other object, initial encounter; Y92.098 Other place in other non-institutional residence as the place of occurrence of the external cause; I10 Essential (primary) hypertension; E11.9 Type 2 diabetes mellitus without complications; M81.0 Age-related osteoporosis without current pathological fracture
CPT/HCPCS: 72128; 72131; 99283

== ENCOUNTER 2022-09-17 00:19 | Emergency (ER) | payer MEDICARE, OTHER ==
[~2022-09-17] VITALS: Ht 147.3 cm; Wt 79.4 kg
[2022-09-17] MEDS ORDERED: CLONIDINE HCL 0.1 MG TAB PO ONE (01:00)
[2022-09-17] MEDS ORDERED: CLONIDINE HCL 0.1 MG TAB ONE (01:12)
== END 2022-09-17 01:58 | disposition home or self-care (01) ==
LOC: FSED 00:49
DX: I10 Essential (primary) hypertension (principal); E11.9 Type 2 diabetes mellitus without complications; M81.0 Age-related osteoporosis without current pathological fracture
CPT/HCPCS: 93005; 99283

== ENCOUNTER → 2022-09-28 | Outpatient (CLI) | payer MEDICARE, OTHER | LOC: US 12:17 | PROVIDERS: ATTEND Family Medicine | DX: R60.9 Edema, unspecified (principal) | CPT/HCPCS: 76536 ==

== ENCOUNTER → 2022-10-15 | Outpatient (CLI) | payer MEDICARE, OTHER | LOC: US 11:52 | PROVIDERS: ATTEND Family Medicine | DX: R22.1 Localized swelling, mass and lump, neck (principal) | CPT/HCPCS: 10005; 88300 ==

== ENCOUNTER → 2023-02-11 | Outpatient (CLI) | payer MEDICARE, OTHER ==
[~2023-02-11] MED LIST changes: +BENZONATATE100 MG PO; +IBUPROFEN800 MG PO
== END ==
LOC: MAMMO 07:52
PROVIDERS: ATTEND Family Medicine
DX: Z12.31 Encounter for screening mammogram for malignant neoplasm of breast (principal); Z13.820 Encounter for screening for osteoporosis; N95.9 Unspecified menopausal and perimenopausal disorder
CPT/HCPCS: 77067; 77080

== ENCOUNTER → 2023-09-20 | Outpatient (REF) | payer MEDICARE, OTHER ==
[~2023-09-20] MED LIST changes: +IOPAMIDOL 370 MG/ML 100 ML INFUS..BTL INJ ONE
[2023-09-20 08:27] LABS: CREATININE, SERUM 0.87 mg/dL (0.57-1.11)
== END ==
LOC: CT 07:33
PROVIDERS: ATTEND Family Medicine
DX: C07 Malignant neoplasm of parotid gland (principal); R91.1 Solitary pulmonary nodule; R91.8 Other nonspecific abnormal finding of lung field
CPT/HCPCS: 36415; 71260; 82565; 84520; Q9967

== ENCOUNTER → 2024-07-01 | Outpatient (REF) | payer MEDICARE, OTHER ==
[~2024-07-01] MED LIST changes: -IOPAMIDOL 370 MG/ML 100 ML INFUS..BTL INJ ONE
== END ==
LOC: MAMMO 09:23
PROVIDERS: ATTEND Family Medicine
DX: Z12.31 Encounter for screening mammogram for malignant neoplasm of breast (principal)
CPT/HCPCS: 77067

== ENCOUNTER → 2025-01-08 | Outpatient (REF) | payer MEDICARE, OTHER | LOC: DX 10:53 | PROVIDERS: ATTEND Family Medicine | DX: M85.88 Other specified disorders of bone density and structure, other site (principal); Z78.0 Asymptomatic menopausal state | CPT/HCPCS: 77080 ==

== ENCOUNTER → 2025-07-12 | Outpatient (REF) | payer MEDICARE, OTHER | LOC: MAMMO 06:27 | PROVIDERS: ATTEND Family Medicine | DX: Z12.31 Encounter for screening mammogram for malignant neoplasm of breast (principal) | CPT/HCPCS: 77067 ==

== ENCOUNTER → 2025-07-12 | Outpatient (REF) | payer MEDICARE, OTHER ==
[2025-07-12 09:59] LABS: BASOPHILS % 0.9 % (0.0-1.0); EOSINOPHILS % 1.3 % (0.0-6.0); LYMPHOCYTES % 16.3 % (18.0-39.1); MONOCYTES % 7.3 % (4.4-11.3); NEUTROPHILS % 73.6 % (38.7-80.0); RED CELL DISTRIBUTION WIDTH 13.3 % (11.7-14.4)
[2025-07-12 10:29] LABS: EST GLOMERULAR FILTRATION RATE 70.0 ML/MIN (>=60)
[2025-07-13 09:56] LABS: LEUKOCYTE ESTERASE ,URINE TRACE (NEGATIVE); PROTEIN,URINE DIPSTICK 2+ (NEGATIVE); URINE UROBILINOGEN 0.2 mg/dL (0.2 - 1)
[2025-07-13 10:46] LABS: EPITHELIAL CELLS,URINE FEW /LPF; WBC,URINE (MAN) 21-50 /HPF (0-5)
[2025-07-13 11:35] LABS: CREATININE,URINE RANDOM 72.13 mg/dL (47-110); TOTAL PROTEIN, URINE 85.9 mg/dL (1-14)
[2025-07-14 18:42] LABS: GLOBULIN TOTAL 3.1; SPE ALPHA 1 GLOBULIN 0.3; SPE ALPHA 2 GLOBULIN 1.0; SPE GAMMA GLOBULIN 0.8; SPE TOTAL PROTEIN 6.4
[2025-07-14 18:43] LABS: A/G RATIO 1.1; KAPPA LIGHT CHAINS 62.8; KAPPA/LAMBDA RATIO 2.17; LAMBDA LIGHT CHAINS 29.0
== END ==
LOC: US 06:22
PROVIDERS: ATTEND Nurse Practitioner
DX: N18.31 Chronic kidney disease, stage 3a (principal)
CPT/HCPCS: 36415; 76770; 76857; 80048; 81001; 82044; 82570; 83970; 84156; 84165; 84166; 85025; 87086

== ENCOUNTER → 2025-09-10 | Outpatient (REF) | payer MEDICARE ==
[2025-09-10 16:07] LABS: EST GLOMERULAR FILTRATION RATE 56.0 ML/MIN (>=60)
== END ==
LOC: LAB 15:13
PROVIDERS: ATTEND Internal Medicine Nephrology
DX: N18.31 Chronic kidney disease, stage 3a (principal)
CPT/HCPCS: 36415; 80048